=== PATIENT | male | born 1965 | race Two or more races ===

== ENCOUNTER 2025-03-09 10:14 | Emergency (ER) | payer BC ==
[~2025-03-09] VITALS: Ht 175.3 cm; Wt 59.0 kg
[2025-03-09] MEDS ORDERED: JARDIANCE10 MG PO (10:33)
[2025-03-09] MEDS ORDERED: PROSCAR5 MG PO (10:34)
[2025-03-09] MEDS ORDERED: ACID REDUCER20 M1 PO (10:34)
[2025-03-09] MEDS ORDERED: BIKTARVY 30-121 EACH PO (10:35)
[2025-03-09] MEDS ORDERED: CEFTRIAXONE SODIUM 1,000 MG VIAL ONE (10:56)
[2025-03-09] MEDS ORDERED: 0.9 % SODIUM CHLORIDE 1,000 ML IV SCH (11:00)
[2025-03-09] MEDS ORDERED: CEFTRIAXONE SODIUM 1,000 MG VIAL IV ONE (11:00)
[2025-03-09] MEDS ORDERED: TRAMADOL HCL 50 MG TABLET PO ONE (11:45)
[2025-03-09 11:58] LABS: HEMOGLOBIN 10.5 g/dL (13-16.00); MEAN CELL VOLUME 89.4 fL (80.0-100.00); MEAN CORPUSCULAR HEMOGLOBIN 28.6 pg (27.00-32.0); RED BLOOD COUNT 3.69 M/uL (4.00-6.00); RED CELL DISTRIBUTION WIDTH 18.2 % (11.5-14.5)
[2025-03-09 12:01] LABS: PLATELET COUNT 1039 K/uL (150-450)
[2025-03-09] MEDS ORDERED: KETOROLAC TROMETHAMINE 30 MG VIAL ONE (12:08)
[2025-03-09 12:50] LABS: ALBUMIN 2.5 gm/dL (3.4-5.0); BILIRUBIN TOTAL 1.01 mg/dL (0.3-1.2); CALCIUM 8.7 mg/dL (8.5-10.1); CREATININE SERUM 1.19 mg/dL (0.70-1.30); GFR 62.79; GLOBULINA 4.5 G/DL (2.4-3.5); POTASSIUM 4.09 mEq/L (3.5-5.1)
[2025-03-09 13:21] LABS: URINE APPEARANCE Clear; URINE BILIRRUBIN Negative (NEGATIVE); URINE BLOOD Negative; URINE COLOR Yellow; URINE KETONE Negative (NEGATIVE); URINE LEUKOCYTE Negative; URINE NITRATE Negative; URINE PROTEIN Negative (NEGATIVE)
[2025-03-09 13:25] LABS: URINE RBC 9.7 uL (0.0-20.8); URINE WBC 2.3 uL (0.0-23.2)
[2025-03-09 13:56] LABS: URINE BACTERIA 1.2 uL (0.0-1933); URINE GLUCOSE >=1000 MG/DL (NEGATIVE)
[2025-03-09 14:09] LABS: COVID-19 AG NEGATIVE (NEGATIVE)
[2025-03-09 14:20] LABS: INFLUENZA A AG NEGATIVE (NEGATIVE)
[2025-03-09] MEDS ORDERED: INSULIN REGULAR, HUMAN 1,000 UNIT/10 ML UNITS IV ONE (14:45)
[2025-03-09] MEDS ORDERED: MORPHINE SULFATE 4 MG/ML CARTRIDGE IV ONE (18:00)
[2025-03-09] MEDS ORDERED: VANCOMYCIN HCL 1,000 MG VIAL IV ONE (18:15)
[2025-03-09] MEDS ORDERED: CEFTRIAXONE SODIUM 2,000 MG in 0.9 % SODIUM CHLORIDE 100 ML IV ONE (18:15)
[2025-03-09] MEDS ORDERED: PANTOPRAZOLE SODIUM 40 MG in 0.9 % SODIUM CHLORIDE 8 ML IV PUSH ONE (18:15)
[2025-03-09] MEDS ORDERED: VANCOMYCIN HCL 1,000 MG VIAL ONE (18:32)
[2025-03-09] MEDS ORDERED: CEFTRIAXONE SODIUM 2,000 MG VIAL ONE (18:32)
[2025-03-09] MEDS ORDERED: MORPHINE SULFATE 2 MG/ML CARTRIDGE IV ONE (22:15)
== END 2025-03-09 23:32 | disposition designated cancer center or children's hospital (05) ==
LOC: ER 10:15
PROVIDERS: Emergency Medicine
DX: L02.414 Cutaneous abscess of left upper limb (principal); E11.65 Type 2 diabetes mellitus with hyperglycemia; Z79.84 Long term (current) use of oral hypoglycemic drugs; Z20.822 Contact with and (suspected) exposure to COVID-19